=== PATIENT | female | born 2000 | race Caucasian/White ===

== ENCOUNTER 2021-09-27 22:21 | Emergency (ER) | payer OTHER ==
[2021-09-27 22:33] VITALS: BP 131/80; PULSE 80; TEMP 99.4; BMI 30.2
[2021-09-27] MEDS ORDERED: SODIUM CHLORIDE 1,000 ML IV STA (22:49)
[2021-09-27 23:36] LABS: BASO % 1.7 % (0-2.0); EOS % 0.7 % (0-4.5); HEMOGLOBIN 11.8 GM/dl (10.7-15.3); LYMPH % 29.7 % (8-40); MCH 26.4 pg (25.7-33.7); MCHC 33.6 g/dl (32.0-36.0); MEAN CELL VOLUME 78.5 fl (80-96); MEAN PLT VOLUME 8.1 fl (7.5-11.1); MONO % 5.8 % (3.8-10.2); NEUT % 62.1 % (42.8-82.8); PLATELET COUNT 463 10^3/uL (134-434); RBC 4.45 M/mm3 (3.60-5.2); RDW 13.8 % (11.6-15.6); WHITE BLOOD COUNT 10.2 K/mm3 (4.0-10.8)
[2021-09-27 23:48] LABS: ALBUMIN 3.9 g/dl (3.4-5.0); ALK PHOS 86 U/L (45-117); ANION GAP 13 MMOL/L (8-16); BILIRUBIN,TOTAL 0.7 mg/dl (0.2-1); CALCIUM 9.6 mg/dl (8.5-10); CHLORIDE 102 mmol/L (98-107); CO2 26 mmol/L (21-32); CREATININE 0.7 mg/dl (0.55-1.3); GLUCOSE,RANDOM 91 mg/dl (74-106); SGOT/AST 15 U/L (15-37); SGPT/ALT 20 U/L (13-61); SODIUM 141 mmol/L (136-145); TOT PROT 7.5 g/dl (6.4-8.2)
== END 2021-09-28 01:32 | disposition home or self-care (01) ==
LOC: FER 22:21
PROC: 3E0337Z Introduction of Electrolytic and Water Balance Substance into Peripheral Vein, Percutaneous Approach (ICD-10-PCS; principal; 2021-09-27)
DX: R42 Dizziness and giddiness (principal); J20.9 Acute bronchitis, unspecified; R07.9 Chest pain, unspecified
CPT/HCPCS: 36415; 71046-TC-FY; 80053; 82550; 84484; 84703; 85025; 85379; 87086; 93005; 99285-25